=== PATIENT | male | born 1940 | race Caucasian/White ===

== ENCOUNTER → 2018-02-05 | Outpatient (CLI) | payer MEDICARE, OTHER | LOC: M.MRI 13:26 | DX: M47.896 Other spondylosis, lumbar region (principal); M48.061 Spinal stenosis, lumbar region without neurogenic claudication; E11.9 Type 2 diabetes mellitus without complications; W19.XXXA Unspecified fall, initial encounter; Y93.89 Activity, other specified; Y92.89 Other specified places as the place of occurrence of the external cause; Y99.8 Other external cause status ==

== ENCOUNTER → 2019-05-23 | Outpatient (CLI) | payer MEDICARE, OTHER | LOC: M.ULTRA 13:08 | DX: I65.23 Occlusion and stenosis of bilateral carotid arteries (principal); I25.10 Atherosclerotic heart disease of native coronary artery without angina pectoris; I77.1 Stricture of artery ==

== ENCOUNTER → 2021-10-04 | Outpatient (CLI) | payer MEDICARE, OTHER ==
[2021-10-04 12:04] LABS: HEMATOCRIT 36.5 % (42.0-52.0); HEMOGLOBIN 12.1 gm/dL (14.0-18.0); MCH 30.6 pg (26.0-34.0); MCHC 33.2 g/dL (28.0-37.0); MCV 91.9 fL (80.0-100.0); MPV 8.1 fl. (7.2-11.1); RBC 3.97 mil/uL (4.50-6.00); RDW-CV 13.8 % (10.5-14.5); WBC 7.6 thou/uL (4.0-11.0)
[2021-10-04 12:15] LABS: ALBUMIN 3.3 g/dL (3.4-5.0); CALCIUM 8.5 mg/dL (8.5-10.1); CREATININE 3.3 mg/dL (0.6-1.3); POTASSIUM 3.9 mmol/L (3.5-5.1); TOTAL BILIRUBIN 0.4 mg/dL (<0.1-1.0)
== END ==
LOC: M.CT 11:00
DX: K40.20 Bilateral inguinal hernia, without obstruction or gangrene, not specified as recurrent (principal); N26.1 Atrophy of kidney (terminal); N28.1 Cyst of kidney, acquired; R91.8 Other nonspecific abnormal finding of lung field; I70.8 Atherosclerosis of other arteries; N32.3 Diverticulum of bladder; N13.30 Unspecified hydronephrosis; I25.10 Atherosclerotic heart disease of native coronary artery without angina pectoris; M47.817 Spondylosis without myelopathy or radiculopathy, lumbosacral region

== ENCOUNTER 2021-10-09 18:32 | Emergency (ER) | payer MEDICARE, OTHER ==
[~2021-10-09] VITALS: Ht 175.3 cm; Wt 98.4 kg
[2021-10-09] MEDS ORDERED: CARVEDILOL12.5 MG PO (18:44)
[2021-10-09] MEDS ORDERED: LIPITOR40 MG PO (18:44)
[2021-10-09] MEDS ORDERED: FUROSEMIDE 40 M40 MG PO (18:44)
[2021-10-09] MEDS ORDERED: LISINOPRIL20 MG PO (18:44)
[2021-10-09] MEDS ORDERED: AMARYL4 MG PO (18:45)
[2021-10-09] MEDS ORDERED: ASA81BEC PO (18:45)
[2021-10-09] MEDS ORDERED: METFORMIN HCL500 M3 PO (18:45)
[2021-10-09] MEDS ORDERED: TERAZOSIN HCL10 MG PO (18:45)
[2021-10-09] MEDS ORDERED: JARDIANCE10 MG PO (18:45)
[2021-10-09] MEDS ORDERED: AUGMENTIN 875-1 EACH PO (20:43)
[2021-10-09 21:37] VITALS: BP 170/97
== END 2021-10-09 21:29 | disposition home or self-care (01) ==
LOC: M.ERS 18:32
DX: S61.452A Open bite of left hand, initial encounter (principal); I10 Essential (primary) hypertension; E78.5 Hyperlipidemia, unspecified; I25.2 Old myocardial infarction; Z85.46 Personal history of malignant neoplasm of prostate; Z79.899 Other long term (current) drug therapy; Z79.82 Long term (current) use of aspirin; W54.0XXA Bitten by dog, initial encounter; Y93.89 Activity, other specified; Y92.89 Other specified places as the place of occurrence of the external cause; Y99.8 Other external cause status